=== PATIENT | female | born 1955 | race Caucasian/White ===

== ENCOUNTER 2016-08-04 10:23 | Inpatient (IN) | payer OTHER, MEDICARE ==
[2016-08-03] MEDS: REMOVE OLD LIDOCAINE PATCH T-DERMAL SCH (03:15)
[2016-08-04] VITALS (7 sets, daily range): BP systolic 126–159; BP diastolic 81–104; PULSE 87–113; RESP 18–22; TEMP 97.1–98.1; O2SAT 89–94
[~2016-08-04] VITALS: Ht 162.6 cm; Wt 69.1 kg
[2016-08-04] MEDS ORDERED: METO50TA PO (10:45)
[2016-08-04] MEDS ORDERED: methylPREDNISolone SOD SUCC 125 MG/2 ML VIAL IVP ONE (10:45)
[2016-08-04] MEDS ORDERED: VENTAER INH (10:45)
[2016-08-04] MEDS ORDERED: REQU3TAB PO (10:45)
[2016-08-04] MEDS ORDERED: DIVA250ER PO (10:45)
[2016-08-04] MEDS ORDERED: ALBU0.63 NEB (10:45)
[2016-08-04 11:02] LABS: AUTOMATED NEUTROPHIL # 1.9 TH/MM3 (1.8-7.7); BASOPHIL % 0.8 % (0.0-2.0); EOSINOPHIL # 0.1 TH/MM3 (0-0.4); EOSINOPHIL % 1.5 % (0.0-4.0); HEMATOCRIT 42.5 % (35.0-46.0); HEMO FLAGS DIFF FINAL; LYMPH % 38.8 % (9.0-44.0); LYMPHOCYTE # 1.4 TH/MM3 (1.0-4.8); MEAN CELL VOLUME 105.3 FL (80.0-100.0); MEAN CORPUSCULAR HEMOGLOBIN 35.1 PG (27.0-34.0); MEAN CORPUSCULAR HGB CONC 33.4 % (32.0-36.0); MONO % 5.8 % (0.0-8.0); NEUT % 53.1 % (16.0-70.0); PLATELET COUNT 132 TH/MM3 (150-450); RED BLOOD COUNT 4.03 MIL/MM3 (4.00-5.30); RED CELL DISTRIBUTION WIDTH 14.4 % (11.6-17.2); WHITE BLOOD COUNT 3.6 TH/MM3 (4.0-11.0)
[2016-08-04] MEDS: RESP: ALBUTEROL 2.5 MG/IPRATROPIUM 0.5 MG NEB (SCH) INH ×4 (11:02→21:20)
[2016-08-04 11:11] LABS: CHLORIDE 103 MEQ/L (98-107); POTASSIUM 3.6 MEQ/L (3.5-5.1); SODIUM (NA) 144 MEQ/L (136-145)
[2016-08-04 11:14] LABS: ANION GAP 16 MEQ/L (5-15); BICARBONATE 25.3 MEQ/L (21.0-32.0); BLOOD UREA NITROGEN 7 MG/DL (7-18)
[2016-08-04 11:15] LABS: INTERNATIONAL NORMALIZED RATIO 0.9 RATIO; PROTHROMBIN TIME - PATIENT 9.9 SEC (9.8-11.6)
[2016-08-04] MEDS ORDERED: KETOROLAC TROMETHAMINE 30 MG/ML (IVP) VIAL IV PUSH ONE (11:15)
[2016-08-04 11:17] LABS: GLOMERULAR FILTRATION RATE 115 ML/MIN (>89)
--- NOTE | 2016-08-04 11:19 | PD ---
HPI Chief Complaint: Respiratory Symptoms Time Seen by Provider: 10:43 Travel History International Travel<30 days: No Contact w/Intl Traveler<30days: No Traveled to known affect area: No History of Present Illness HPI 61yo F with PMH of COPD not on home O2, rectal prolapse presents to the ED with c/o sob and cough for a few days. Pt states she has used her ventolin pump but did not work today. Pt also with some midsternal chest pain with the sob but cannot describe it. She also has dysuria and suprapubic pain for a few days. Also complaining of left sided lower back pain for a few weeks. No trauma or fall, no focal weakness, numbness or IVDA. Complained of pink vaginal bleeding unsure if it is vaginal or rectal. Denies any fever, vomiting, hematuria, focal weakness or numbness. PFSH Past Medical History COPD: Yes Hypertension: Yes Neurologic: Yes (RLS) Seizures: Yes Influenza Vaccination: No Past Surgical History Other Surgery: Yes (RECTAL PROLAPSE SURGERY) Social History Alcohol Use: No Tobacco Use: Yes (1 PPD) Substance Use: No Allergies-Medications (Allergen,Severity, Reaction): Coded Allergies: No Known Allergies (Unverified , 08/04/16) Reported Meds & Prescriptions Reported Meds & Active Scripts Active Reported Albuterol Neb (Albuterol Sulfate) 0.63 Mg/3 Ml Neb 0.63 Mg NEB Q4HR NEB PRN Metoprolol Tartrate 50 Mg Tab 50 Mg PO DAILY Requip (Ropinirole) 3 Mg Tab 3 Mg PO HS Depakote ER (Divalproex Sodium) 250 Mg Nargis 250 Mg PO DAILY Ventolin Hfa 18 GM Inh (Albuterol Sulfate) 90 Mcg/Act Aer 2 Puff INH Q4-6H PRN Review of Systems Except as stated in HPI: all other systems reviewed are Neg Physical Exam Narrative GENERAL: 61yo F in moderate distress. SKIN: Focused skin assessment warm/dry. HEAD: Atraumatic. Normocephalic. EYES: Pupils equal and round. No scleral icterus. No injection or drainage. ENT: No nasal bleeding or discharge. Mucous membranes pink and moist. NECK: Trachea midline. No JVD. CARDIOVASCULAR: Regular rate and rhythm. No murmur appreciated. RESPIRATORY: + accessory muscle use. Coarse breath sounds bilaterally. GASTROINTESTINAL: Abdomen soft, non-tender, nondistended. No rebound tenderness or guarding. PELVIC: No blood in vaginal vault. No vaginal discharge. No CMT or adnexal tenderness. RECTAL: No black stool. There is a spot of positive hemaprompt but I was not able to get much stool. MUSCULOSKELETAL: No obvious deformities. No clubbing. No cyanosis. No edema. NEUROLOGICAL: Awake and alert. No obvious cranial nerve deficits. Motor grossly within normal limits. Normal speech. PSYCHIATRIC: Appropriate mood and affect; insight and judgment normal. Data Data Last Documented VS Vital Signs Date Time Temp Pulse Resp B/P Pulse Ox O2 Delivery O2 Flow Rate FiO2 08/04/16 11:11 97.8 98 20 126/81 89 Aerosol Mask 08/04/16 10:45 2.00 Orders Complete Blood Count With Diff (08/04/16 10:44) Basic Metabolic Panel (Bmp) (08/04/16 10:44) B-Type Natriuretic Peptide (08/04/16 10:44) Act Partial Throm Time (Ptt) (08/04/16 10:44) Prothrombin Time / Inr (Pt) (08/04/16 10:44) Ckmb (Isoenzyme) Profile (08/04/16 10:44) Troponin I (08/04/16 10:44) Arterial Blood Gas (Abg) (08/04/16 10:44) Urinalysis - C+S If Indicated (08/04/16 10:44) Chest, Single Ap (08/04/16 10:44) Methylprednisolone So Succ Inj (Solumedr (08/04/16 10:45) Albuterol-Ipratropium Neb (Duoneb Neb) (08/04/16 10:45) Ketorolac Inj (Toradol Inj) (08/04/16 11:15) CKMB (08/04/16 10:58) CKMB% (08/04/16 10:58) Morphine Inj (Morphine Inj) (08/04/16 12:30) Ct Pulmonary Angiogram (08/04/16 ) Admit Order (Ed Use Only) (08/04/16 12:31) Labs Laboratory Tests Test 08/04/16 08/04/16 08/04/16 10:58 11:18 11:26 White Blood Count 3.6 TH/MM3 Red Blood Count 4.03 MIL/MM3 Hemoglobin 14.2 GM/DL Hematocrit 42.5 % Mean Corpuscular Volume 105.3 FL Mean Corpuscular Hemoglobin 35.1 PG Mean Corpuscular Hemoglobin 33.4 % Concent Red Cell Distribution Width 14.4 % Platelet Count 132 TH/MM3 Mean Platelet Volume 7.4 FL Neutrophils (%) (Auto) 53.1 % Lymphocytes (%) (Auto) 38.8 % Monocytes (%) (Auto) 5.8 % Eosinophils (%) (Auto) 1.5 % Basophils (%) (Auto) 0.8 % Neutrophils # (Auto) 1.9 TH/MM3 Lymphocytes # (Auto) 1.4 TH/MM3 Monocytes # (Auto) 0.2 TH/MM3 Eosinophils # (Auto) 0.1 TH/MM3 Basophils # (Auto) 0.0 TH/MM3 CBC Comment DIFF FINAL Differential Comment Prothrombin Time 9.9 SEC Prothromb Time International 0.9 RATIO Ratio Activated Partial 25.0 SEC Thromboplast Time Sodium Level 144 MEQ/L Potassium Level 3.6 MEQ/L Chloride Level 103 MEQ/L Carbon Dioxide Level 25.3 MEQ/L Anion Gap 16 MEQ/L Blood Urea Nitrogen 7 MG/DL Creatinine 0.54 MG/DL Estimat Glomerular Filtration 115 ML/MIN Rate Random Glucose 160 MG/DL Calcium Level 8.2 MG/DL Total Creatine Kinase 104 U/L Creatine Kinase MB 1.4 NG/ML Troponin I LESS THAN 0.02 NG/ML B-Type Natriuretic Peptide 4 PG/ML Blood Gas Puncture Site RT RADIAL Blood Gas Patient Temperature 98.6 Blood Gas HCO3 24 mmol/L Blood Gas Base Excess -0.7 mmol/L Blood Gas Oxygen Saturation 80 % Arterial Blood pH 7.40 Arterial Blood Partial 39 mmHG Pressure CO2 Arterial Blood Partial 57 mmHG Pressure O2 Arterial Blood Oxygen Content 15.6 Vol % Arterial Blood 7.1 % Carboxyhemoglobin Arterial Blood Methemoglobin 1.2 % Blood Gas Hemoglobin 13.9 G/DL Oxygen Delivery Device RA Blood Gas Inspired Oxygen 21 % Urine Collection Type CATH Urine Color YARY Urine Turbidity CLEAR Urine pH 5.5 Urine Specific [place] 1.032 Urine Protein 30 mg/dL Urine Glucose (UA) NEG mg/dL Urine Ketones 15 mg/dL Urine Occult Blood NEG Urine Nitrite NEG Urine Bilirubin MOD Urine Leukocyte Esterase NEG Urine RBC 0-3 /hpf Urine WBC 0-2 /hpf Urine Squamous Epithelial 0-5 /hpf Cells Microscopic Urinalysis Comment CULT NOT INDICATED MDM Medical Decision Making Medical Screen Exam Complete: Yes Emergency Medical Condition: Yes Interpretation(s) EKG: Sinus tachycardia at 113bpm. Normal axis. No ST segment elevation or depression. Laboratory Tests Test 08/04/16 08/04/16 08/04/16 10:58 11:18 11:26 White Blood Count 3.6 TH/MM3 (4.0-11.0) Red Blood Count 4.03 MIL/MM3 (4.00-5.30) Hemoglobin 14.2 GM/DL (11.6-15.3) Hematocrit 42.5 % (35.0-46.0) Mean Corpuscular Volume 105.3 FL (80.0-100.0) Mean Corpuscular Hemoglobin 35.1 PG (27.0-34.0) Mean Corpuscular Hemoglobin 33.4 % Concent (32.0-36.0) Red Cell Distribution Width 14.4 % (11.6-17.2) Platelet Count 132 TH/MM3 (150-450) Mean Platelet Volume 7.4 FL (7.0-11.0) Neutrophils (%) (Auto) 53.1 % (16.0-70.0) Lymphocytes (%) (Auto) 38.8 % (9.0-44.0) Monocytes (%) (Auto) 5.8 % (0.0-8.0) Eosinophils (%) (Auto) 1.5 % (0.0-4.0) Basophils (%) (Auto) 0.8 % (0.0-2.0) Neutrophils # (Auto) 1.9 TH/MM3 (1.8-7.7) Lymphocytes # (Auto) 1.4 TH/MM3 (1.0-4.8) Monocytes # (Auto) 0.2 TH/MM3 (0-0.9) Eosinophils # (Auto) 0.1 TH/MM3 (0-0.4) Basophils # (Auto) 0.0 TH/MM3 (0-0.2) CBC Comment DIFF FINAL Differential Comment Prothrombin Time 9.9 SEC (9.8-11.6) Prothromb Time International 0.9 RATIO Ratio Activated Partial 25.0 SEC Thromboplast Time (24.3-30.1) Sodium Level 144 MEQ/L (136-145) Potassium Level 3.6 MEQ/L (3.5-5.1) Chloride Level 103 MEQ/L (98-107) Carbon Dioxide Level 25.3 MEQ/L (21.0-32.0) Anion Gap 16 MEQ/L (5-15) Blood Urea Nitrogen 7 MG/DL (7-18) Creatinine 0.54 MG/DL (0.50-1.00) Estimat Glomerular Filtration 115 ML/MIN Rate (>89) Random Glucose 160 MG/DL (74-106) Calcium Level 8.2 MG/DL (8.5-10.1) Total Creatine Kinase 104 U/L (26-192) Creatine Kinase MB 1.4 NG/ML (0.5-3.6) Troponin I LESS THAN 0.02 NG/ML (0.02-0.05) B-Type Natriuretic Peptide 4 PG/ML (0-100) Blood Gas Puncture Site RT RADIAL Blood Gas Patient Temperature 98.6 Blood Gas HCO3 24 mmol/L (22-26) Blood Gas Base Excess -0.7 mmol/L (-2-2) Blood Gas Oxygen Saturation 80 % (90-100) Arterial Blood pH 7.40 (7.380-7.420) Arterial Blood Partial 39 mmHG (38-42) Pressure CO2 Arterial Blood Partial 57 mmHG Pressure O2 (61-120) Arterial Blood Oxygen Content 15.6 Vol % (12.0-20.0) Arterial Blood 7.1 % (0-4) Carboxyhemoglobin Arterial Blood Methemoglobin 1.2 % (0-2) Blood Gas Hemoglobin 13.9 G/DL (12.0-16.0) Oxygen Delivery Device RA Blood Gas Inspired Oxygen 21 % Urine Collection Type CATH Urine Color YARY (YELLW/STRAW) Urine Turbidity CLEAR (CLEAR) Urine pH 5.5 (5.0-8.5) Urine Specific [place] 1.032 (1.002-1.035) Urine Protein 30 mg/dL (NEG-TRACE) Urine Glucose (UA) NEG mg/dL (NEG) Urine Ketones 15 mg/dL (NEG) Urine Occult Blood NEG (NEG) Urine Nitrite NEG (NEG) Urine Bilirubin MOD (NEG) Urine Leukocyte Esterase NEG (NEG) Urine RBC 0-3 /hpf (0-3) Urine WBC 0-2 /hpf (0-5) Urine Squamous Epithelial 0-5 /hpf (0-5) Cells Microscopic Urinalysis Comment CULT NOT INDICATED Last Impressions Chest X-Ray 08/04/16 1044 Signed Impressions: Service Date/Time: Thursday, August 04, 2016 11:00 - CONCLUSION: Minimal bibasilar atelectasis. Ignacio Coker MD CT Angiography 08/04/16 0000 Signed Impressions: Service Date/Time: Thursday, August 04, 2016 13:15 - CONCLUSION: 1. Minimal bibasilar atelectasis. 2. No evidence for pulmonary embolism. 3. Moderate hepatic steatosis. Ignacio Coker MD Differential Diagnosis COPD exacerbation vs. Pneumonia vs. CHF vs. UTI vs. ACS Narrative Course 61yo F here with multiple complaints but is here mainly for . Labs reviewed, no leukocytosis. H/H is 14.2/42.3. BNP 4. Troponin negative. UA showed moderate bilirubin but no leukocyte or nitrite. ABG showed O2 sat 80% with pO2 57 on room air. Carboxyhemoglobin is 7.1, and pt is a cig smoker. CXR showed minimal bibasilar atelectasis. Impression is COPD exacerbation since pt has coarse breath sounds and felt better after duonebs x3 and methylprednisolone 125mg IV. Pt saturating at 94% on 3 L NC and does not use oxygen at home. CT angio showed minimal bibasilar atelectasis. No PE. Pt was given morphine for back pain since toradol didnt help. She has left lower back pain that seems musculoskeletal for a few weeks. No numbness, weakness in legs and no fever or trauma. Discussed case with Dr. Guzman and accepted to his service. [facility] Point of Care Internal Pos. & Neg. Controls: Passed Fecal Specimen Occult Blood: Positive Diagnosis Primary Impression: COPD exacerbation Admitting Information Admitting Physician Requests: Observation Sandy Graves DO August 04, 2016 11:18
[2016-08-04 11:20] LABS: CREATINE KINASE 104 U/L (26-192)
[2016-08-04 11:24] LABS: BLOOD GAS BASE EXCESS -0.7 mmol/L (-2-2); BLOOD GAS CARBOXYHEMOGLOBIN 7.1 % (0-4); BLOOD GAS HCO3 24 mmol/L (22-26); BLOOD GAS METHEMOGLOBIN 1.2 % (0-2); BLOOD GAS O2 HGB SATURATION 80 % (90-100); BLOOD GAS OXYGEN CONTENT 15.6 Vol % (12.0-20.0); BLOOD GAS PCO2 39 mmHG (38-42); BLOOD GAS PO2 57 mmHG (61-120); BLOOD GAS TOTAL HGB 13.9 G/DL (12.0-16.0); CRITICAL VALUE YES; TEMP CORR TO 98.6
[2016-08-04 11:25] LABS: DRAW SITE RT RADIAL; FIO2 21 %; NUMBER OF ARTERIAL PUNCTURES 1; OXYGEN DEVICE RA; STAT YES; ULNAR PULSE PRESENT
--- NOTE | 2016-08-04 11:27 | RADHPO ---
EXAM DATE/TIME: 08/04/2016 11:00 [facility] COMPARISON: No previous studies available for comparison. INDICATIONS : Mid chest pain, short of breath MEDICAL HISTORY : Chronic obstructive pulmonary disease. SURGICAL HISTORY : None. ENCOUNTER: Initial ACUITY: 2 days PAIN SCORE: 5/10 LOCATION: Bilateral chest FINDINGS: A single view of the chest is obtained. Minimal bibasilar atelectasis. Heart normal size. The cardiom ediastinal contours are unremarkable. Osseous structures are intact. CONCLUSION: Minimal bibasilar atelectasis. Ignacio Coker MD on August 04, 2016 at 11:25 Board Certified Radiologist. This report was verified electronically.
[2016-08-04 11:34] LABS: BLOOD, URINE NEG (NEG); GLUCOSE,URINE NEG (NEG); KETONE, URINE 15 mg/dL (NEG); NITRITE,URINE NEG (NEG); PH, URINE 5.5 (5.0-8.5)
[2016-08-04 11:34] LABS: CKMB 1.4 NG/ML (0.5-3.6)
[2016-08-04 11:35] LABS: METHOD OF COLLECTION CATH
[2016-08-04 11:36] LABS: URINE COLOR AMBER (YELLW/STRAW)
[2016-08-04 11:38] LABS: RBC, URINE 0-3 /hpf (0-3); WBC, URINE 0-2 /hpf (0-5)
[2016-08-04 11:39] LABS: COMMENT (UR) CULT NOT INDICATED; COMMENT2 (UR) MUCOUS PRESENT; CULTURE IF INDICATED CULT NOT INDICATED; SQUAMOUS EPITHELIAL CELL URINE 0-5 /hpf (0-5)
[2016-08-04] MEDS ORDERED: MORPHINE SULFATE 4 MG/ML INJ IV PUSH ONE (12:30)
[2016-08-04] MEDS ORDERED: IOHEXOL 350 MG/ML 10 ML VIAL (for RAD DIAG) IV ONE (13:31)
--- NOTE | 2016-08-04 13:36 | RADHPO ---
EXAM DATE/TIME: 08/04/2016 13:15 [facility] COMPARISON: No previous studies available for comparison. INDICATIONS : Short of breath. Hypoxic. IV CONTRAST: 65 cc Omnipaque 350 (iohexol) IV RADIATION DOSE: 9.25 CTDIvol (mGy) MEDICAL HISTORY : Hypertension. Chronic obstructive pulmonary disease. SURGICAL HISTORY : None. ENCOUNTER: Initial ACUITY: 1 day PAIN SCALE: 0/10 LOCATION: chest TECHNIQUE: Volumetric scanning of the chest was performed using a pulmonary embolism protocol MIP images were re constructed. Using automated exposure control and adjustment of the mA and/or kV according to patien t size, radiation dose was kept as low as reasonably achievable to obtain optimal diagnostic quality images. FINDINGS: PULMONARY ARTERIES: No filling defects are seen in the pulmonary arteries through the segmental level. LUNGS: There is no consolidation or pneumothorax . No concerning pulmonary nodule is visualized. Minimal po sterior bibasilar densities. PLEURAE: There is no pleural thickening or pleural effusion. MEDIASTINUM: There is good visualization of the great vessels of the middle mediastinum. No evidence of mediastin al or hilar adenopathy/mass. MUSCULOSKELETAL: Within normal limits for patient age. MISCELLANEOUS: The visualized upper abdominal organs demonstrate no acute abnormality. Decreased attenuation in the liver. CONCLUSION: 1. Minimal bibasilar atelectasis. 2. No evidence for pulmonary embolism. 3. Moderate hepatic steatosis. Ignacio Coker MD on August 04, 2016 at 13:32 Board Certified Radiologist. This report was verified electronically.
[2016-08-04] MEDS ORDERED: RESP: ALBUTEROL 2.5 MG/3 ML NEB (PRN) INH (13:45)
[2016-08-04] MEDS ORDERED: NITROGLYCERIN 0.4 MG SL 25 TABS/BTL SL PRN (14:45)
[2016-08-04] MEDS ORDERED: KETOROLAC TROMETHAMINE 60 MG/2 ML (IM) VIAL IM PRN (14:45)
--- NOTE | 2016-08-04 14:46 | HHI.HP ---
[facility] Eulalia Ramírez MD Admission Diagnosis COPD exacerbation Diagnoses: (1) Acute respiratory failure with hypoxia Diagnosis: Principal (2) Chronic obstructive pulmonary disease Diagnosis: Principal (3) Back pain Diagnosis: Principal (4) Hyperglycemia Diagnosis: Principal Chief Complaint: Shortness of breath, chest discomfort Travel History International Travel<30 Days: No Contact w/Intl Traveler <30 Da: No Traveled to Known Affected Are: No History of Present Illness Written by David Pena, acting as scribe for Dr. Guzman on 08/04/16 at 14: 18. 61-year-old female with known history of hypertension, hyperlipidemia , restless leg syndrome, chronic obstructive pulmonary disease who presented to the hospital because of chest discomfort, shortness of breath, dyspnea. Patient states that her symptoms started 3 weeks ago. She states that she was cleaning out a pulled a has not been cleaned in 3 years. She indicates that she drain the pool and cleaned out a foot of sludge in the bottom of the pool. After that she started significant amount of back pain, shortness of breath, dyspnea. She states that she had not been in the move off the couch for 2 weeks because she has having such bad back pain. She has been using her nebulizer machine at home without any significant improvement. Because she has not improved, she came to the hospital for evaluation. Patient was found to have a hypoxic respiratory failure with radiology findings indicating atelectasis. Patient has also been complaining of cough, sore throat, ear pain , chest congestion, phlegm production. Review of Systems Constitutional: DENIES: Diaphoretic episodes, Fatigue, Fever, Weight gain, Weight loss, Chills, Dizziness, Change in appetite, Night Sweats Eyes: DENIES: Blurred vision, Diplopia, Eye inflammation, Eye pain, Vision loss , Photosensitivity, Double Vision Ears, nose, mouth, throat: COMPLAINS OF: Throat pain, Ear Pain, DENIES: Vertigo, Nasal discharge, Hoarseness, Running Nose, Sinus Pain Respiratory: COMPLAINS OF: Cough, Sputum production, Shortness of breath, DENIES: Apneas, Snoring, Wheezing, Hemoptysis Cardiovascular: COMPLAINS OF: Chest pain, DENIES: Palpitations, Syncope, Dyspnea on Exertion, Lower Extremity Edema, Orthopnea Gastrointestinal: COMPLAINS OF: Diarrhea, DENIES: Abdominal pain, Black stools , Bloody stools, Constipation, Nausea, Vomiting, Difficulty Swallowing, Anorexia Past Family Social History Past Medical History Hypertension Hyperlipidemia Restless leg syndrome Chronic obstructive pulmonary disease Chronic tobacco use History of rectal prolapse History of seizures Past Surgical History Rectal prolapse surgery with rectal resection Reported Medications Reported Meds & Active Scripts Active Reported Albuterol Neb (Albuterol Sulfate) 0.63 Mg/3 Ml Neb 0.63 Mg NEB Q4HR NEB PRN Metoprolol Tartrate 50 Mg Tab 50 Mg PO DAILY Requip (Ropinirole) 3 Mg Tab 3 Mg PO HS Depakote ER (Divalproex Sodium) 250 Mg Nargis 250 Mg PO DAILY Ventolin Hfa 18 GM Inh (Albuterol Sulfate) 90 Mcg/Act Aer 2 Puff INH Q4-6H PRN Allergies: Coded Allergies: No Known Allergies (Unverified , 08/04/16) Family History Reviewed is significant for mother with heart disease. Father with stroke and embolic event. Sister with breast cancer Social History Patient continues smoke a pack a cigarettes a day since she was 27 years old. Drinks alcohol rarely. Denies any illicit drugs Physical Exam Vital Signs Vital Signs Date Time Temp Pulse Resp B/P Pulse Ox O2 Delivery O2 Flow Rate FiO2 08/04/16 12:47 92 18 142/82 94 Nasal Cannula 3 08/04/16 11:11 97.8 98 20 126/81 89 Aerosol Mask 08/04/16 10:45 94 Nasal Cannula 2.00 08/04/16 10:38 97.7 113 22 146/90 89 Physical Exam GENERAL: Well-developed, well-nourished, in no acute distress. alert and orientated HEENT: Head is normocephalic without any lesions or masses noted. Facial features are symmetric. Eyes: Pupils equal round reactive to light. Extraocular muscles are intact. Conjunctivae were clear. Oropharyngeal: Pharynx without any erythema edema. Tongue is midline without deviation. Buccal mucosa is moist without any masses or lesions NECK: Supple without any masses. Trachea midline no deviation. No JVD, no bruits are appreciated CARDIAC: Regular rhythm, tachycardia. S1/S2 are heard. No murmurs gallops or rubs. LUNGS: Patient with positive lung sounds with crackles and wheeze left greater than right. No rhonchi. No use of accessory muscles on inspiration or expiration. ABDOMEN: Soft, nontender. Nondistended. Bowel sounds heard in all 4 quadrants. No organomegaly or masses. Negative rebound, negative guarding EXTREMITIES: No edema, pulses are equal bilaterally. No cyanosis or clubbing NEUROLOGY: Mood and affect appear appropriate. Cranial nerves II through XII grossly intact. Muscle strength 5/5 in upper and lower extremities bilaterally. Deep tendon reflexes are 2+ in upper and lower extremities bilaterally. LUMBAR SPINE: Patient does have palpable tenderness, spasms noted at L5-S1. There is hypertonicity noted of the paraspinal musculature. Laboratory Laboratory Tests Test 08/04/16 08/04/16 08/04/16 10:58 11:18 11:26 White Blood Count 3.6 Red Blood Count 4.03 Hemoglobin 14.2 Hematocrit 42.5 Mean Corpuscular Volume 105.3 Mean Corpuscular Hemoglobin 35.1 Mean Corpuscular Hemoglobin 33.4 Concent Red Cell Distribution Width 14.4 Platelet Count 132 Mean Platelet Volume 7.4 Neutrophils (%) (Auto) 53.1 Lymphocytes (%) (Auto) 38.8 Monocytes (%) (Auto) 5.8 Eosinophils (%) (Auto) 1.5 Basophils (%) (Auto) 0.8 Neutrophils # (Auto) 1.9 Lymphocytes # (Auto) 1.4 Monocytes # (Auto) 0.2 Eosinophils # (Auto) 0.1 Basophils # (Auto) 0.0 CBC Comment DIFF FINAL Differential Comment Prothrombin Time 9.9 Prothromb Time International 0.9 Ratio Activated Partial 25.0 Thromboplast Time Sodium Level 144 Potassium Level 3.6 Chloride Level 103 Carbon Dioxide Level 25.3 Anion Gap 16 Blood Urea Nitrogen 7 Creatinine 0.54 Estimat Glomerular Filtration 115 Rate Random Glucose 160 Calcium Level 8.2 Total Creatine Kinase 104 Creatine Kinase MB 1.4 Troponin I LESS THAN 0.02 B-Type Natriuretic Peptide 4 Blood Gas Puncture Site RT RADIAL Blood Gas Patient Temperature 98.6 Blood Gas HCO3 24 Blood Gas Base Excess -0.7 Blood Gas Oxygen Saturation 80 Arterial Blood pH 7.40 Arterial Blood Partial 39 Pressure CO2 Arterial Blood Partial 57 Pressure O2 Arterial Blood Oxygen Content 15.6 Arterial Blood 7.1 Carboxyhemoglobin Arterial Blood Methemoglobin 1.2 Blood Gas Hemoglobin 13.9 Oxygen Delivery Device RA Blood Gas Inspired Oxygen 21 Urine Collection Type CATH Urine Color YARY Urine Turbidity CLEAR Urine pH 5.5 Urine Specific [place] 1.032 Urine Protein 30 Urine Glucose (UA) NEG Urine Ketones 15 Urine Occult Blood NEG Urine Nitrite NEG Urine Bilirubin MOD Urine Leukocyte Esterase NEG Urine RBC 0-3 Urine WBC 0-2 Urine Squamous Epithelial 0-5 Cells Microscopic Urinalysis Comment CULT NOT INDICATED Result Diagram: 08/04/16 1058 08/04/16 1058 Imaging Last Impressions Chest X-Ray 08/04/16 1044 Signed Impressions: Service Date/Time: Thursday, August 04, 2016 11:00 - CONCLUSION: Minimal bibasilar atelectasis. Ignacio Coker MD CT Angiography 08/04/16 0000 Signed Impressions: Service Date/Time: Thursday, August 04, 2016 13:15 - CONCLUSION: 1. Minimal bibasilar atelectasis. 2. No evidence for pulmonary embolism. 3. Moderate hepatic steatosis. Ignacio Coker MD Assessment and Plan Assessment and Plan Acute hypoxic respiratory failure secondary to chronic obstructive pulmonary disease, atelectasis Continue O2 supplementation maintain O2 sats greater than 92%. May need home oxygen prior to discharge Duo nebs every 6 hours and albuterol every 2 hours as needed Solu-Medrol 60 mg IV every 6 hours, start Protonix for GI protection Azithromycin taper Incentive spirometry Chest discomfort with dyspnea Likely secondary to respiratory failure, atelectasis however will rule out acute coronary event Patient does have increased risk factors to include age, hypertension, hyperlipidemia, family history of heart disease, tobacco use Continue trend cardiac enzymes and EKGs Start aspirin, continue beta kellee, nitroglycerin as needed Chronic tobacco use Patient was counseled on smoking cessation Lumbar strain/sprain Secondary to overuse injury Lidoderm patch Claude and Toradol for pain control Physical therapy evaluation Hyperglycemia Obtain hemoglobin A1c Start Accu-Cheks with sliding scale insulin if needed Hypertension, hyperlipidemia Continue home medications History of seizure disorder Continued home medication DVT prevention Subcutaneous heparin Physician Certification 2 Midnight Certification Type: Admission for Inpatient Services Order for Inpatient Services The services are ordered in accordance with Medicare regulations or non- Medicare payer requirements, as applicable. In the case of services not specified as inpatient-only, they are appropriately provided as inpatient services in accordance with the 2-midnight benchmark. Estimated LOS (days): 3 days is the estimated time the patient will need to remain in the hospital, assuming treatment plan goals are met and no additional complications. Post-Hospital Plan: Not yet determined Problem Qualifiers (1) Chronic obstructive pulmonary disease: Qualified Code: J44.9 - Chronic obstructive pulmonary disease, unspecified COPD type (2) Back pain: Qualified Code: M54.5 - Acute bilateral low back pain without sciatica David Pena August 04, 2016 14:46
[2016-08-04] MEDS: ASPIRIN EC 81 MG TABEC PO SCH (15:12)
[2016-08-04] MEDS: HEPARIN SODIUM - SQ 10,000 UNITS/ML VIAL SQ SCH ×2 (15:12→20:19)
[2016-08-04] MEDS: LIDOCAINE HCL 5% PATCH T-DERMAL SCH (15:12)
[2016-08-04] MEDS: PANTOPRAZOLE SOD 40 MG DELAYED RELEASE TAB PO SCH (15:12)
[2016-08-04] MEDS: ACETAMINOPHEN/HYDROcodone 325 MG/5 MG TAB PO PRN ×2 (15:15→20:19)
[2016-08-04 17:25] LABS: CREATINE KINASE 85 U/L (26-192)
[2016-08-04] MEDS: methylPREDNISolone SOD SUCC 125 MG/2 ML VIAL IVP SCH ×2 (17:26→23:33)
[2016-08-04] MEDS ORDERED: LORazepam 2 MG TAB PO PRN (18:00)
[2016-08-04] MEDS ORDERED: FLUMAZENIL 0.5 MG/5 ML VIAL IV PUSH PRN (18:00)
[2016-08-04] MEDS ORDERED: LORazepam 2 MG/ML VIAL IV PUSH PRN ×2 (18:00)
[2016-08-04] MEDS: LORazepam 1 MG TAB PO PRN (18:14)
[2016-08-04] MEDS: REMOVE OLD LIDOCAINE PATCH T-DERMAL SCH (20:20)
[2016-08-04] MEDS: LORazepam 2 MG/ML VIAL IV PUSH PRN (20:20)
[2016-08-04 23:34] LABS: CREATINE KINASE 86 U/L (26-192)
[2016-08-05] VITALS (9 sets, daily range): BP systolic 150–176; BP diastolic 78–112; PULSE 70–107; RESP 16–24; TEMP 96–97.7; O2SAT 90–95
[2016-08-05] MEDS: RESP: ALBUTEROL 2.5 MG/IPRATROPIUM 0.5 MG NEB (SCH) INH ×4 (03:30→21:12)
[2016-08-05] MEDS: LORazepam 2 MG/ML VIAL IV PUSH PRN ×5 (03:44→21:00)
[2016-08-05] MEDS: ACETAMINOPHEN/HYDROcodone 325 MG/5 MG TAB PO PRN ×4 (03:50→17:33)
[2016-08-05] MEDS: methylPREDNISolone SOD SUCC 125 MG/2 ML VIAL IVP SCH ×2 (05:16→11:16)
[2016-08-05] MEDS: HEPARIN SODIUM - SQ 10,000 UNITS/ML VIAL SQ SCH ×3 (05:16→21:00)
[2016-08-05 07:59] LABS: AUTOMATED NEUTROPHIL # 4.3 TH/MM3 (1.8-7.7); BASOPHIL % 0.5 % (0.0-2.0); HEMO FLAGS DIFF FINAL; LYMPH % 8.8 % (9.0-44.0); LYMPHOCYTE # 0.4 TH/MM3 (1.0-4.8); MEAN CELL VOLUME 105.4 FL (80.0-100.0); MEAN CORPUSCULAR HEMOGLOBIN 34.4 PG (27.0-34.0); MEAN CORPUSCULAR HGB CONC 32.6 % (32.0-36.0); MONO % 3.4 % (0.0-8.0); NEUT % 87.3 % (16.0-70.0); PLATELET COUNT 135 TH/MM3 (150-450); RED BLOOD COUNT 3.89 MIL/MM3 (4.00-5.30); RED CELL DISTRIBUTION WIDTH 14.2 % (11.6-17.2); WHITE BLOOD COUNT 4.9 TH/MM3 (4.0-11.0)
[2016-08-05] MEDS: METOPROLOL TARTRATE 50 MG TAB PO SCH (08:01)
[2016-08-05] MEDS: DIVALPROEX SODIUM E.R. 250 MG TAB PO SCH (08:01)
[2016-08-05] MEDS: ASPIRIN EC 81 MG TABEC PO SCH (08:01)
[2016-08-05] MEDS: LIDOCAINE HCL 5% PATCH T-DERMAL SCH (08:02)
[2016-08-05] MEDS: AZITHROMYCIN 250 MG TAB PO SCH (08:02)
[2016-08-05] MEDS: PANTOPRAZOLE SOD 40 MG DELAYED RELEASE TAB PO SCH (08:02)
[2016-08-05 08:07] LABS: POTASSIUM 3.4 MEQ/L (3.5-5.1)
[2016-08-05 08:11] LABS: BICARBONATE 29.1 MEQ/L (21.0-32.0)
[2016-08-05 09:39] LABS: HDL CHOLESTEROL 109.8 MG/DL (40.0-60.0)
[2016-08-05 11:35] LABS: HEMOGLOBIN A1a 1.5 %; HEMOGLOBIN A1b 0.7 %; HEMOGLOBIN Ao 84.3 %; HEMOGLOBIN F 1.9 %; HEMOGLOBIN P3 3.4 %
--- NOTE | 2016-08-05 11:51 | HHI.PR ---
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 She stated she still in short of breath, but no fever, still having cough Objective Vitals Vital Signs Date Time Temp Pulse Resp B/P Pulse Ox O2 Delivery O2 Flow Rate FiO2 08/05/16 10:45 93 Nasal Cannula 3.00 08/05/16 08:00 96.8 82 24 176/100 90 08/05/16 04:50 18 08/05/16 04:00 96.2 100 16 150/78 94 08/05/16 00:00 96.8 96 16 151/87 91 08/04/16 21:22 93 Nasal Cannula 3.00 08/04/16 20:23 18 08/04/16 20:00 97.1 87 18 159/104 93 08/04/16 16:00 98.1 105 18 143/93 93 08/04/16 12:47 92 18 142/82 94 Nasal Cannula 3 I/O 08/04/16 08/04/16 08/04/16 08/05/16 08/05/16 08/05/16 07:00 15:00 23:00 07:00 15:00 23:00 Intake Total 260 ml 440 ml Output Total 100 ml Balance 160 ml 440 ml Intake Oral 260 ml 440 ml Output Urine Total 100 ml # Voids 1 2 # Bowel Movements 0 1 Result Diagram: 08/05/16 0730 08/05/16 0730 Imaging Last Impressions Chest X-Ray 08/04/16 1044 Signed Impressions: Service Date/Time: Thursday, August 04, 2016 11:00 - CONCLUSION: Minimal bibasilar atelectasis. Ignacio Coker MD CT Angiography 08/04/16 0000 Signed Impressions: Service Date/Time: Thursday, August 04, 2016 13:15 - CONCLUSION: 1. Minimal bibasilar atelectasis. 2. No evidence for pulmonary embolism. 3. Moderate hepatic steatosis. Ignacio Coker MD Objective Remarks - - GENERAL: This is a frail elderly lady looks fatigued SKIN: No rashes, warm and dry HEAD: Atraumatic. Normocephalic. EYES: Pupils equal round and reactive. Extraocular motions intact. No scleral icterus. ENT: Nose without bleeding, or drainage, Airway patent. NECK: Trachea midline. Supple CARDIOVASCULAR: Regular rate and rhythm without murmurs, gallops, or rubs. RESPIRATORY: Fairly okay air entry today with less wheezing GASTROINTESTINAL: Abdomen soft, non-tender, nondistended. Positive bowel sounds MUSCULOSKELETAL: Extremities without clubbing, cyanosis, or edema. Pedal pulses appreciated NEUROLOGICAL: Awake and alert oriented. Moves all extremity. Normal speech.no focal neurological deficit A/P Problem List: (1) Acute respiratory failure with hypoxia ICD Code: J96.01 Status: Acute (2) Chronic obstructive pulmonary disease ICD Code: J44.9 Status: Acute (3) Back pain ICD Code: M54.9 Status: Acute (4) Hyperglycemia ICD Code: R73.9 Status: Acute Assessment and Plan Acute hypoxic respiratory failure secondary to chronic obstructive pulmonary disease, atelectasis Continue O2 supplementation maintain O2 sats greater than 92%. May need home oxygen prior to discharge Duo nebs every 6 hours and albuterol every 2 hours as needed Taper Solu-Medrol, start Protonix for GI protection Azithromycin taper Incentive spirometry Chest discomfort with dyspnea Likely secondary to respiratory failure, atelectasis however will rule out acute coronary event Patient does have increased risk factors to include age, hypertension, hyperlipidemia, family history of heart disease, tobacco use Personally reviewed cardiac enzymes and EKGs unremarkable for acute ACS Start aspirin, continue beta kellee, nitroglycerin as needed Reviewed FLP patient has significant high level of HDL 109, LDL 169, total cholesterol 304, however cholesterol/HDL ratio is 2.76, patient may benefit of moderate intensity statin Chronic tobacco use Patient was counseled on smoking cessation Lumbar strain/sprain Secondary to overuse injury Lidoderm patch [place] and Toradol for pain control Physical therapy evaluation Hyperglycemia mostly steroid-induced hemoglobin A1c 5.8 Accu-Cheks with sliding scale insulin if needed Hypertension, hyperlipidemia Continue home medications History of seizure disorder Continued home medication DVT prevention Subcutaneous heparin Problem Qualifiers (1) Chronic obstructive pulmonary disease: Qualified Code: J44.9 - Chronic obstructive pulmonary disease, unspecified COPD type (2) Back pain: Qualified Code: M54.5 - Acute bilateral low back pain without sciatica Marilyn Guzman MD August 05, 2016 11:51
[2016-08-05] MEDS ORDERED: POTASSIUM CHLORIDE 20 MEQ CONTROLLED RELEASE TAB PO ONE (12:00)
[2016-08-05] MEDS ORDERED: GLUCAGON 1 MG/ML VIAL OTHER PRN (15:15)
[2016-08-05] MEDS ORDERED: DEXTROSE 50% IN WATER 50 ML VIAL(D50) IV PUSH PRN (15:15)
--- NOTE | 2016-08-05 15:26 | EKG ---
Date Performed: 08/04/2016 Time Performed: 10:33:04 PTAGE: 61 years EKG: Sinus tachycardia ST junctional depression is nonspecific Borderline ECG NO PREVIOUS TRACING DOCTOR: Dillon Lane Interpretating Date/Time 08/05/2016 15:25:07
--- NOTE | 2016-08-05 15:28 | EKG ---
Date Performed: 08/04/2016 Time Performed: 16:52:18 PTAGE: 61 years EKG: Sinus arrhythmia. Poor R wave progression - probable normal variant Anteroseptal T wave linda nges are nonspecific Borderline ECG PREVIOUS TRACING : 08/04/2016 10.33 Compared to previous tracing, sinus rate has slowed. DOCTOR: Dillon Lane Interpretating Date/Time 08/05/2016 15:26:24
--- NOTE | 2016-08-05 15:28 | EKG ---
Date Performed: 08/04/2016 Time Performed: 22:19:24 PTAGE: 61 years EKG: Sinus arrhythmia Poor R wave progression - probable normal variant Septal ST-T changes are nonspecific Borderline ECG PREVIOUS TRACING : 08/04/2016 16.52 Compared to previous tracing, sinus rate is slower. DOCTOR: Dillon Lane Interpretating Date/Time 08/05/2016 15:27:19
[2016-08-05] MEDS: cloNIDine HCL 0.1 MG TAB PO PRN ×2 (15:30→22:17)
[2016-08-05 15:43] LABS: TOTAL BILIRUBIN ADULT 0.6 MG/DL (0.2-1.0)
[2016-08-05 15:46] LABS: INDIRECT BILIRUBIN 0.3 MG/DL (0.0-0.8)
[2016-08-05] MEDS: INSULIN NovoLIN REGULAR SUPPLEMENTAL SCALE SQ SCH ×2 (16:00→22:12)
[2016-08-05] MEDS ORDERED: VALP250C PO (16:06)
[2016-08-05] MEDS: methylPREDNISolone SOD SUCC 40 MG/1 ML VIAL IV SCH (17:32)
[2016-08-05] MEDS: REMOVE OLD LIDOCAINE PATCH T-DERMAL SCH (21:00)
[2016-08-06] VITALS (10 sets, daily range): BP systolic 117–170; BP diastolic 84–111; PULSE 67–110; RESP 16–22; TEMP 95.4–97.1; O2SAT 92–95
[2016-08-06] MEDS: methylPREDNISolone SOD SUCC 40 MG/1 ML VIAL IV SCH ×3 (02:34→17:33)
[2016-08-06] MEDS: LORazepam 2 MG/ML VIAL IV PUSH PRN ×3 (02:40→17:36)
[2016-08-06] MEDS: RESP: ALBUTEROL 2.5 MG/IPRATROPIUM 0.5 MG NEB (SCH) INH ×4 (03:40→21:14)
[2016-08-06] MEDS: ACETAMINOPHEN/HYDROcodone 325 MG/5 MG TAB PO PRN ×4 (06:04→22:01)
[2016-08-06] MEDS: HEPARIN SODIUM - SQ 10,000 UNITS/ML VIAL SQ SCH ×3 (06:04→21:53)
[2016-08-06] MEDS: INSULIN NovoLIN REGULAR SUPPLEMENTAL SCALE SQ SCH ×4 (07:00→21:00)
[2016-08-06] MEDS: PANTOPRAZOLE SOD 40 MG DELAYED RELEASE TAB PO SCH (08:56)
[2016-08-06] MEDS: METOPROLOL TARTRATE 50 MG TAB PO SCH (08:56)
[2016-08-06] MEDS: AZITHROMYCIN 250 MG TAB PO SCH (08:56)
[2016-08-06] MEDS: DIVALPROEX SODIUM E.R. 250 MG TAB PO SCH (08:56)
[2016-08-06] MEDS: ASPIRIN EC 81 MG TABEC PO SCH (08:56)
[2016-08-06] MEDS: LIDOCAINE HCL 5% PATCH T-DERMAL SCH (08:57)
[2016-08-06] MEDS ORDERED: cloNIDine HCL 0.1 MG TAB PO PRN (10:00)
[2016-08-06] MEDS: LISINOPRIL 10 MG TAB PO SCH ×2 (10:39→21:54)
[2016-08-06] MEDS: NICOTINE 21 MG/24 HR PATCH T-DERMAL SCH (14:11)
[2016-08-06] MEDS ORDERED: hydrALAZINE HCL 20 MG/ML VIAL IV PUSH PRN (17:00)
--- NOTE | 2016-08-06 17:14 | RADHPO ---
EXAM DATE/TIME: 08/06/2016 16:01 [place] COMPARISON: CT PULMONARY ANGIOGRAM, August 04, 2016, 13:15. INDICATIONS : Abdnormal labs. MEDICAL HISTORY : Chronic obstructive pulmonary disease. Restless legs syndrome. Seizures. Hypertension. Dyspnea. D epression. Respiratory failure. SURGICAL HISTORY : Rectal prolapse repair. ENCOUNTER: Initial ACUITY: 1 day PAIN SCORE: 5/10 LOCATION: Bilateral upper quadrant MEASUREMENTS: LIVER: 17.0 cm length COMMON DUCT: 5 mm RIGHT KIDNEY: 10.5 x 5.6 x 5.5 cm SPLEEN: 7.7 cm length FINDINGS: Ultrasound of the upper abdomen demonstrates increased echogenicity of the liver compatible with fatt y infiltration or hepatocellular disease. The spleen is unremarkable. There is a small polyp versus n on-shadowing stone in the gallbladder measuring 5 mm. The pancreas demonstrates no evidence of mass a nd there is no dilatation of the pancreatic duct. The spleen is normal in size and free of focal defe cts. The right kidney is unremarkable. CONCLUSION: 1. Echogenic liver compatible with fatty infiltration or hepatocellular disease. 2. Small polyp or non-shadowing stone in the gallbladder Jayant Lara MD on August 06, 2016 at 17:09 Board Certified Radiologist. This report was verified electronically.
--- NOTE | 2016-08-06 17:58 | HHI.PR ---
Subjective Remarks patient sitting on the commode still huffing and puffing feeling extremely tired afebrile still on O2, blood pressure is not controlled 160/100, liver enzymes elevated, still complaining of flank pain and that she cannot walk Objective Vitals Vital Signs Date Time Temp Pulse Resp B/P Pulse Ox O2 Delivery O2 Flow Rate FiO2 08/06/16 17:16 117/84 08/06/16 16:31 93 Nasal Cannula 2.00 08/06/16 16:00 95.9 80 19 158/103 95 08/06/16 10:56 69 08/06/16 10:40 94 Nasal Cannula 2.00 08/06/16 09:55 2.00 08/06/16 08:00 95.4 94 22 160/100 92 08/06/16 04:00 96.5 98 16 130/86 95 08/06/16 00:00 97.1 110 16 153/111 94 08/05/16 21:13 94 Nasal Cannula 3.00 08/05/16 20:00 97.7 81 20 170/101 95 08/05/16 20:00 107 I/O 08/05/16 08/05/16 08/05/16 08/06/16 08/06/16 08/06/16 07:00 15:00 23:00 07:00 15:00 23:00 Intake Total 440 ml 620 ml 240 ml 20 ml Output Total 300 ml Balance 440 ml 320 ml 240 ml 20 ml Intake Oral 440 ml 600 ml 240 ml 0 ml IV Total 20 ml 20 ml Output Urine Total 300 ml # Voids 2 2 # Bowel Movements 1 0 Result Diagram: 08/05/1630 08/05/1630 Objective Remarks - - GENERAL: This is a frail elderly lady looks fatigued SKIN: No rashes, warm and dry HEAD: Atraumatic. Normocephalic. EYES: Pupils equal round and reactive. Extraocular motions intact. No scleral icterus. ENT: Nose without bleeding, or drainage, Airway patent. NECK: Trachea midline. Supple CARDIOVASCULAR: Regular rate and rhythm without murmurs, gallops, or rubs. RESPIRATORY: Fairly okay air entry today with less wheezing GASTROINTESTINAL: Abdomen soft, non-tender, nondistended. Positive bowel sounds MUSCULOSKELETAL: Extremities without clubbing, cyanosis, or edema. Pedal pulses appreciated NEUROLOGICAL: Awake and alert oriented. Moves all extremity. Normal speech.no focal neurological deficit A/P Problem List: (1) Acute respiratory failure with hypoxia ICD Code: J96.01 Status: Acute (2) Chronic obstructive pulmonary disease ICD Code: J44.9 Status: Acute (3) Back pain ICD Code: M54.9 Status: Acute (4) Hyperglycemia ICD Code: R73.9 Status: Acute Assessment and Plan Acute hypoxic respiratory failure secondary to chronic obstructive pulmonary disease, atelectasis Continue O2 supplementation maintain O2 sats greater than 92%. May need home oxygen prior to discharge Duo nebs every 6 hours and albuterol every 2 hours as needed Taper Solu-Medrol, start Protonix for GI protection Azithromycin taper Incentive spirometry Uncontrolled hypertension with tachycardia lisinopril 10 mg by mouth twice a day, monitor blood pressure and adjust -clonidine as needed Elevated transaminase -Check hepatitis panel, liver ultrasound, repeat in a.m. Chest discomfort with dyspnea Likely secondary to respiratory failure, atelectasis however will rule out acute coronary event Patient does have increased risk factors to include age, hypertension, hyperlipidemia, family history of heart disease, tobacco use Personally reviewed cardiac enzymes and EKGs unremarkable for acute ACS Start aspirin, continue beta kellee, nitroglycerin as needed Reviewed FLP patient has significant high level of HDL 109, LDL 169, total cholesterol 304, however cholesterol/HDL ratio is 2.76, patient may benefit of moderate intensity statin Chronic tobacco use Patient was counseled on smoking cessation Lumbar strain/sprain Secondary to overuse injury Lidoderm patch [place] and Toradol for pain control Physical therapy evaluation Hyperglycemia mostly steroid-induced hemoglobin A1c 5.8 Accu-Cheks with sliding scale insulin if needed Hypertension, hyperlipidemia Continue home medications History of seizure disorder Continued home medication DVT prevention Subcutaneous heparin Problem Qualifiers (1) Chronic obstructive pulmonary disease: Qualified Code: J44.9 - Chronic obstructive pulmonary disease, unspecified COPD type (2) Back pain: Qualified Code: M54.5 - Acute bilateral low back pain without sciatica Marilyn Guzman MD August 06, 2016 17:58
[2016-08-06] MEDS: REMOVE OLD LIDOCAINE PATCH T-DERMAL SCH (21:00)
[2016-08-06] MEDS: LORazepam 1 MG TAB PO PRN (21:54)
[2016-08-07] VITALS (9 sets, daily range): BP systolic 158–178; BP diastolic 92–118; PULSE 66–99; RESP 18–20; TEMP 95.5–97.5; O2SAT 94–98
[2016-08-07] MEDS: methylPREDNISolone SOD SUCC 40 MG/1 ML VIAL IV SCH ×3 (01:55→17:42)
[2016-08-07] MEDS: LORazepam 1 MG TAB PO PRN ×2 (01:55→06:05)
[2016-08-07] MEDS: RESP: ALBUTEROL 2.5 MG/IPRATROPIUM 0.5 MG NEB (SCH) INH ×4 (03:40→21:09)
[2016-08-07] MEDS: HEPARIN SODIUM - SQ 10,000 UNITS/ML VIAL SQ SCH ×3 (06:04→22:06)
[2016-08-07] MEDS: ACETAMINOPHEN/HYDROcodone 325 MG/5 MG TAB PO PRN ×2 (06:05→12:47)
[2016-08-07] MEDS: INSULIN NovoLIN REGULAR SUPPLEMENTAL SCALE SQ SCH ×4 (06:08→21:00)
[2016-08-07] MEDS ORDERED: MIRA0.25 PO (06:53)
[2016-08-07] MEDS: REMOVE OLD PATCH T-DERMAL SCH (09:00)
[2016-08-07] MEDS: PANTOPRAZOLE SOD 40 MG DELAYED RELEASE TAB PO SCH (09:34)
[2016-08-07] MEDS: METOPROLOL TARTRATE 50 MG TAB PO SCH (09:34)
[2016-08-07] MEDS: ASPIRIN EC 81 MG TABEC PO SCH (09:35)
[2016-08-07] MEDS: VALPROIC ACID 250 MG CAP PO SCH ×2 (09:35→22:00)
[2016-08-07] MEDS: LISINOPRIL 10 MG TAB PO SCH ×2 (09:35→21:59)
[2016-08-07] MEDS: AZITHROMYCIN 250 MG TAB PO SCH (09:35)
[2016-08-07] MEDS: NICOTINE 21 MG/24 HR PATCH T-DERMAL SCH (09:39)
[2016-08-07] MEDS: LIDOCAINE HCL 5% PATCH T-DERMAL SCH (09:41)
[2016-08-07] MEDS ORDERED: POTASSIUM CHLORIDE 10 MEQ CONTROLLED RELEASE TAB PO ONE (10:30)
[2016-08-07] MEDS ORDERED: cloNIDine HCL 0.1 MG TAB PO PRN (11:00)
[2016-08-07] MEDS ORDERED: NAPROXEN 500 MG TAB PO ONE (11:00)
[2016-08-07] MEDS ORDERED: ACETAMINOPHEN/HYDROcodone 325 MG/10 MG TAB PO PRN (11:30)
--- NOTE | 2016-08-07 12:17 | HHI.PR ---
Subjective Remarks Remains oxygen dependent. She is not yet ambulatory due to degree of dyspnea. Primary complaint today is middle back pain. Renal function is normal. Back Strain is suspected etiology for her back pain. No other complaints. Blood pressures not yet controlled. Objective Vital Signs Date Time Temp Pulse Resp B/P Pulse Ox O2 Delivery O2 Flow Rate FiO2 08/07/16 09:48 97 Nasal Cannula 2.00 08/07/16 09:11 95.7 91 18 178/111 95 08/07/16 07:00 95 Nasal Cannula 2.00 08/07/16 04:30 95.5 84 18 162/99 95 08/07/16 00:00 96.1 77 20 158/92 95 08/06/16 23:01 18 08/06/16 21:14 93 Nasal Cannula 2.00 08/06/16 20:00 95.5 72 20 170/100 94 08/06/16 20:00 67 08/06/16 19:00 Nasal Cannula 2.00 08/06/16 17:16 117/84 08/06/16 16:31 93 Nasal Cannula 2.00 08/06/16 16:00 95.9 80 19 158/103 95 I/O 08/06/16 08/06/16 08/06/16 08/07/16 08/07/16 08/07/16 07:00 15:00 23:00 07:00 15:00 23:00 Intake Total 240 ml 20 ml 600 ml Output Total 700 ml Balance 240 ml 20 ml -100 ml Intake Oral 240 ml 0 ml 600 ml IV Total 20 ml Output Urine Total 700 ml # Voids 2 2 # Bowel Movements 0 Result Diagram: 08/05/16 0730 08/05/16 0730 Imaging Last Impressions Liver Ultrasound 08/06/16 0000 Signed Impressions: Service Date/Time: Saturday, August 06, 2016 16:01 - CONCLUSION: 1. Echogenic liver compatible with fatty infiltration or hepatocellular disease. 2. Small polyp or non-shadowing stone in the gallbladder Jayant Lara MD Chest X-Ray 08/04/16 1044 Signed Impressions: Service Date/Time: Thursday, August 04, 2016 11:00 - CONCLUSION: Minimal bibasilar atelectasis. Ignacio Coker MD CT Angiography 08/04/16 0000 Signed Impressions: Service Date/Time: Thursday, August 04, 2016 13:15 - CONCLUSION: 1. Minimal bibasilar atelectasis. 2. No evidence for pulmonary embolism. 3. Moderate hepatic steatosis. Ignacio Coker MD Objective Remarks GENERAL: NAD, A&Ox3, Oxygen in place with NC SKIN: Warm and dry. HEAD: Normocephalic. EYES: No scleral icterus. No injection or drainage. NECK: Supple, trachea midline. No JVD or lymphadenopathy. CARDIOVASCULAR: Regular rate and rhythm without murmurs, gallops, or rubs. RESPIRATORY: Breath sounds equal bilaterally. Wheezing and Rhonchi bilaterally. Slight increased work of breathing with mild accessory muscle use. GASTROINTESTINAL: Abdomen soft, non-tender, nondistended. MUSCULOSKELETAL: No cyanosis, or edema. BACK: Nontender without obvious deformity. No CVA tenderness. Medications and IVs Administered Medications Medications (Trade) Dose Ordered Sig/Jose Guadalupe Route PRN Reason Start Time Stop Time Status Last Admin Dose Admin Azithromycin (Zithromax) 250 mg Taper DAILY PO 08/04/16 14:00 08/09/16 13:59 08/07/16 09:35 Heparin Sodium (Porcine) (Heparin Inj) 5,000 units Q8H SQ 08/04/16 14:00 08/07/16 06:04 Divalproex Sodium (Depakote Er) 250 mg DAILY PO 08/05/16 09:00 Hold 08/06/16 08:56 Metoprolol Tartrate (Lopressor) 50 mg DAILY PO 08/05/16 09:00 08/07/16 09:34 Ropinirole HCl (Requip) 3 mg HS PO 08/04/16 21:00 08/06/16 21:54 Lidocaine HCl (Lidoderm 5% Patch.12 Hr) 1 patch DAILY T-DERMAL 08/04/16 15:00 08/07/16 09:41 Miscellaneous Information 1 Q24H T-DERMAL 08/04/16 21:00 08/05/16 21:00 Aspirin (Ecotrin Ec) 162 mg DAILY PO 08/04/16 15:00 08/07/16 09:35 Nitroglycerin (Nitrostat Sl) 0.4 mg Q5M PRN SL CHEST PAIN 08/04/16 14:45 08/04/16 20:18 Pantoprazole Sodium (Protonix) 40 mg DAILY PO 08/04/16 15:00 08/07/16 09:34 Acetaminophen/ Hydrocodone Bitart ([place] 5-325 Mg) 1 tab Q4H PRN PO PAIN SCALE 1 TO 5 08/04/16 14:45 08/06/16 06:04 Acetaminophen/ Hydrocodone Bitart ([place] 5-325 Mg) 2 tab Q4H PRN PO PAIN SCALE 6 TO 10 08/04/16 14:45 08/07/16 06:05 Lorazepam (Ativan) 1 mg Q4H PRN PO CIWA 8 - 10 08/04/16 18:00 08/07/16 06:05 Lorazepam (Ativan Inj) 1 mg Q4H PRN IV PUSH CIWA 8 - 10 08/04/16 18:00 08/06/16 17:36 Lorazepam (Ativan) 2 mg Q2H PRN PO CIWA 11-14 08/04/16 18:00 08/04/16 18:17 Lorazepam (Ativan Inj) 2 mg Q2H PRN IV PUSH CIWA 11-14 08/04/16 18:00 08/06/16 10:43 Methylprednisolone Sodium Succinate (SoluMEDROL INJ) 40 mg Q8H IV 08/05/16 18:00 08/07/16 09:38 Lisinopril (Prinivil) 10 mg Q12HR PO 08/06/16 10:00 08/07/16 09:35 Clonidine (Catapres) 0.1 mg Q6H PRN PO bp>160/90 08/06/16 10:00 08/06/16 11:47 Valproic Acid (Depakene) 250 mg BID PO 08/07/16 09:00 08/07/16 09:35 Nicotine (Habitrol 21 Mg Patch.24 Hr) 1 patch DAILY T-DERMAL 08/06/16 14:00 08/07/16 09:39 Miscellaneous Information 1 DAILY T-DERMAL 08/07/16 09:00 08/07/16 09:00 A/P Problem List: (1) COPD exacerbation ICD Code: J44.1 (2) Chronic obstructive pulmonary disease ICD Code: J44.9 (3) Hypertension ICD Code: I10 (4) Hyperlipidemia ICD Code: E78.5 (5) Acute respiratory failure with hypoxia ICD Code: J96.01 (6) Back pain ICD Code: M54.9 Assessment and Plan Assessment and Plan 61 year old female admitted with a COPD Exacerbation. COPD Exacerbation Acute Hypoxia Continue oxygen to maintain saturations at or above 92% She is not on oxygen at baseline Scheduled Duonebs PRN Albuterol Systemic steroids Iscentive Spirometry Azithromycin Chest discomfort resolved Chronic tobacco use Advise smoking cessation Lumbar strain/sprain PRN [place] for pain PT Flexeril, Naproxen, Lidoderm patch Hyperglycemia Steroid-induced hemoglobin A1c 5.8 Sliding Scale Insulin Hypertension PRN Clonidine Continue baseline treatments Hyperlipidemia Statin Follow as an outpatient History of seizure disorder Continue baseline treatments DVT prevention Heparin Problem Qualifiers (1) Chronic obstructive pulmonary disease: Qualified Code: J44.9 - Chronic obstructive pulmonary disease, unspecified COPD type (2) Back pain: Qualified Code: M54.5 - Acute bilateral low back pain without sciatica Giuliano Riggs MD August 07, 2016 11:24 am
[2016-08-07] MEDS: CYCLOBENZAPRINE HCL 10 MG TAB PO SCH ×2 (14:29→22:02)
[2016-08-07] MEDS: REMOVE OLD LIDOCAINE PATCH T-DERMAL SCH (21:00)
[2016-08-07] MEDS: NAPROXEN 500 MG TAB PO SCH (21:59)
[2016-08-08] VITALS: BP 168/116; PULSE 100; RESP 21; TEMP 97.5; O2SAT 95
[2016-08-08] MEDS: methylPREDNISolone SOD SUCC 40 MG/1 ML VIAL IV SCH ×2 (02:14→09:56)
[2016-08-08] MEDS: RESP: ALBUTEROL 2.5 MG/IPRATROPIUM 0.5 MG NEB (SCH) INH ×2 (03:26→10:00)
[2016-08-08 04:00] VITALS: BP 182/102; PULSE 86; RESP 20; TEMP 97.6; O2SAT 99
[2016-08-08] MEDS: CYCLOBENZAPRINE HCL 10 MG TAB PO SCH (05:28)
[2016-08-08] MEDS: HEPARIN SODIUM - SQ 10,000 UNITS/ML VIAL SQ SCH (05:28)
[2016-08-08] MEDS: INSULIN NovoLIN REGULAR SUPPLEMENTAL SCALE SQ SCH ×2 (06:24→11:00)
[2016-08-08 08:43] VITALS: BP 154/101; PULSE 82; RESP 18; TEMP 96.3; O2SAT 94
[2016-08-08] MEDS: REMOVE OLD PATCH T-DERMAL SCH (09:00)
[2016-08-08] MEDS ORDERED: ATORVASTATIN 40 MG TAB PO SCH (09:00)
[2016-08-08] MEDS ORDERED: METOPROLOL TARTRATE 50 MG TAB PO SCH (09:00)
[2016-08-08] MEDS ORDERED: LISINOPRIL 20 MG TAB PO SCH (09:00)
[2016-08-08] MEDS: VALPROIC ACID 250 MG CAP PO SCH (09:56)
[2016-08-08] MEDS: NAPROXEN 500 MG TAB PO SCH (09:56)
[2016-08-08] MEDS: PANTOPRAZOLE SOD 40 MG DELAYED RELEASE TAB PO SCH (09:56)
[2016-08-08] MEDS: LIDOCAINE HCL 5% PATCH T-DERMAL SCH (10:00)
[2016-08-08] MEDS: AZITHROMYCIN 250 MG TAB PO SCH (10:00)
[2016-08-08] MEDS: ASPIRIN EC 81 MG TABEC PO SCH (10:01)
[2016-08-08] MEDS: NICOTINE 21 MG/24 HR PATCH T-DERMAL SCH (10:01)
[2016-08-08] MEDS ORDERED: AZIT250T3 PO (10:07)
[2016-08-08] MEDS ORDERED: LISI-515 PO (10:07)
[2016-08-08] MEDS ORDERED: METO25TA3 PO (10:07)
[2016-08-08] MEDS ORDERED: PRED5TAB PO (10:09)
[2016-08-08 10:14] VITALS: O2SAT 97
[2016-08-08] MEDS ORDERED: IPRASOL INH (10:18)
--- NOTE | 2016-08-08 10:25 | HHI.DS ---
Discharge Summary Admission Date August 04, 2016 at 12:32 Discharge Date: August 08, 2016 Admitting Diagnosis COPD exacerbation (1) Acute respiratory failure with hypoxia ICD Code: J96.01 Diagnosis: Principal (2) Chronic obstructive pulmonary disease ICD Code: J44.9 Diagnosis: Principal (3) Back pain ICD Code: M54.9 Diagnosis: Principal (4) Hyperglycemia ICD Code: R73.9 Diagnosis: Principal (5) COPD exacerbation ICD Code: J44.1 Diagnosis: Principal (6) Hypertension ICD Code: I10 Diagnosis: Principal (7) Hyperlipidemia ICD Code: E78.5 Diagnosis: Secondary (8) Hypertensive urgency ICD Code: I16.0 Diagnosis: Principal Procedures none Brief History - From Admission Written by David Pena, acting as scribe for Dr. Guzman on 08/04/16 at 14: 18. 61-year-old female with known history of hypertension, hyperlipidemia , restless leg syndrome, chronic obstructive pulmonary disease who presented to the hospital because of chest discomfort, shortness of breath, dyspnea. Patient states that her symptoms started 3 weeks ago. She states that she was cleaning out a pulled a has not been cleaned in 3 years. She indicates that she drain the pool and cleaned out a foot of sludge in the bottom of the pool. After that she started significant amount of back pain, shortness of breath, dyspnea. She states that she had not been in the move off the couch for 2 weeks because she has having such bad back pain. She has been using her nebulizer machine at home without any significant improvement. Because she has not improved, she came to the hospital for evaluation. Patient was found to have a hypoxic respiratory failure with radiology findings indicating atelectasis. Patient has also been complaining of cough, sore throat, ear pain , chest congestion, phlegm production. CBC/BMP: 08/05/16 0730 08/05/16 0730 PE at Discharge GENERAL: NAD, A&Ox3 SKIN: Warm and dry. HEAD: Normocephalic. EYES: No scleral icterus. No injection or drainage. NECK: Supple, trachea midline. No JVD or lymphadenopathy. CARDIOVASCULAR: Regular rate and rhythm without murmurs, gallops, or rubs. RESPIRATORY: Breath sounds equal bilaterally. No accessory muscle use. GASTROINTESTINAL: Abdomen soft, non-tender, nondistended. MUSCULOSKELETAL: No cyanosis, or edema. Hospital Course Mrs. Castillo is a 7-year-old female. She is admitted with COPD exacerbation, acute respiratory failure, and hypoxia. She was also treated for hypertensive urgency while here. With oxygen she maintained oxygen saturations in the low 90s but these have gradually improved her time. Today she has been weaned off oxygen and oxygen saturations are maintained in the mid 90s. She is able to ambulate without respiratory distress and hypoxia. Blood pressure medications have been increased and blood pressures are improved on the treatment. Medically stable for discharge today. Pt Condition on Discharge: Stable Discharge Disposition: Discharge Home Discharge Time: <= 30 minutes Discharge Instructions Follow up Referrals: PCP Follow-up - 2 Weeks New Medications: Metoprolol Tartrate (Metoprolol Tartrate) 25 Mg Tab 25 MG PO BID Blood Pressure Management #60 Ref 0 TAB Prednisone (Prednisone) 5 Mg Tab 5 MG PO DAILY Inflammation #5 Ref 0 TAB Azithromycin (Azithromycin) 250 Mg Tab 250 MG PO DAILY Cough #4 TAB Ipratropium-Albuterol Neb (Duoneb) 0.5-2.5 Mg/3 Ml Neb 1 AMPULE INH BID Broncospasm #10 ML Lisinopril (Lisinopril) 20 Mg Tab 40 MG PO DAILY Blood Pressure Management #30 TAB Continued Medications: Albuterol 18 GM Inh (Ventolin Hfa 18 GM Inh) 90 Mcg/Act Aer 2 PUFF INH Q4-6H PRN SHORTNESS OF BREATH #1 Ref 0 INHALER Albuterol Neb (Albuterol Neb) 0.63 Mg/3 Ml Neb 0.63 MG NEB Q4HR NEB PRN SHORTNESS OF BREATH #25 Ref 0 NEBULE Pramipexole (Mirapex) 0.25 Mg Tab 0.25 MG PO HS Parkinson Disease Mgmt #30 Ref 0 TAB Ropinirole (Requip) 3 Mg Tab 4 MG PO HS #30 Ref 0 TAB Valproic Acid (Valproic Acid) 250 Mg Cap 250 MG PO BID #60 Ref 0 CAP Discontinued Medications: Metoprolol Tartrate (Metoprolol Tartrate) 50 Mg Tab 50 MG PO DAILY #30 Ref 0 TAB Giuliano Riggs MD August 08, 2016 10:25
[2016-08-08 12:26] VITALS: BP 182/112; PULSE 85; RESP 18; TEMP 96.9; O2SAT 97
== END 2016-08-08 14:29 | disposition home or self-care (01) | DRG 189 ==
LOC: PHED 10:23 → PHEDA 12:32 → PH3A 13:48
PROVIDERS: ADMIT Hospitalist; ATTEND Hospitalist
DX: J96.01 Acute respiratory failure with hypoxia (principal); J44.1 Chronic obstructive pulmonary disease with (acute) exacerbation; K76.0 Fatty (change of) liver, not elsewhere classified; Z99.81 Dependence on supplemental oxygen; J98.11 Atelectasis; I10 Essential (primary) hypertension; M54.9 Dorsalgia, unspecified; R73.9 Hyperglycemia, unspecified; E78.5 Hyperlipidemia, unspecified; I16.0 Hypertensive urgency; G25.81 Restless legs syndrome; G40.909 Epilepsy, unspecified, not intractable, without status epilepticus; S39.012A Strain of muscle, fascia and tendon of lower back, initial encounter; T38.0X5A Adverse effect of glucocorticoids and synthetic analogues, initial encounter; F22 Delusional disorders; F10.20 Alcohol dependence, uncomplicated; F17.200 Nicotine dependence, unspecified, uncomplicated; Z79.899 Other long term (current) drug therapy; Z82.49 Family history of ischemic heart disease and other diseases of the circulatory system
CPT/HCPCS: 36600; 71010; 71275; 76705; 80048; 80061; 80074; 80076; 81001; 82550; 82552; 82805; 82948; 83036; 83880; 84484; 85025; 85610; 85730; 93005; 94150; 94620; 94640; 94664; 96374; 96375; J0360; J1644; J1885; J2060; J2270; J2920; J2930; J7613; Q9967